=== PATIENT | male | born 1980 | race African-American/Black ===

== ENCOUNTER 2017-11-10 12:10 | Emergency (ER) | payer SELFPAY ==
[2017-11-10] MEDS ORDERED: Ketorolac Tromethamine 30 MG/ML VIAL ONE (13:03)
[2017-11-10] MEDS ORDERED: Diazepam 5 MG TAB ONE (13:04)
--- NOTE | 2017-11-10 13:23 | RAD ---
THREE VIEWS LUMBAR SPINE: Date: 11-10-17 Comparison: None. History: Lumbar spine pain. FINDINGS: Bilateral pedicle screws are present at T11, T12, and L1 with vertically oriented interlocking rods. No evidence for hardware failure. Mild anterior wedging of T12 suggests prior fracture. There is disc space narrowing with degenerative endplate change as well as anterior and posterior osteophyte forma tion at the L4-5 level. No significant anterolisthesis or retrolisthesis. No acute fracture is noted. IMPRESSION: Post-operative and degenerative changes as detailed above. POS: LISETTE
== END 2017-11-10 14:35 | disposition home or self-care (01) ==
LOC: ERS 12:10
DX: M54.5 Low back pain (principal); G89.29 Other chronic pain; F17.210 Nicotine dependence, cigarettes, uncomplicated
CPT/HCPCS: 72100; 96372; J1885

== ENCOUNTER 2018-04-26 18:37 | Observation (INO) | payer OTHER, SELFPAY ==
[2018-04-26] MEDS ORDERED: Sodium Chloride 0.45% 1,000 ML IV SCH (23:30)
[2018-04-27 04:48] VITALS: BMI 26.6
[2018-04-27] MEDS ORDERED: Fentanyl 100 MCG/2 ML VIAL ONE ×2 (06:13→08:54)
[2018-04-27] MEDS ORDERED: Succinylcholine Chloride 20 MG/ML 10 ml SYRINGE FS ONE (06:13)
[2018-04-27] MEDS ORDERED: Betamet Acet/Betamet Na Ph 30 MG/5 ML VIAL ONE (06:44)
[2018-04-27] MEDS ORDERED: Bacitracin Zinc Ointment 30 gm TUBE ONE (06:44)
[2018-04-27] MEDS ORDERED: Sodium Chloride 0.9% 10 ML ONE (06:44)
[2018-04-27] MEDS ORDERED: Bupivacaine PF 0.5% 30 ML VIAL ONE (06:44)
[2018-04-27] MEDS ORDERED: CEFAZOLIN/Water 2 GM/20 ML SYRINGE ONE (06:52)
[2018-04-27] MEDS ORDERED: Midazolam HCl 2 mg/2 ml Vial ONE (07:00)
[2018-04-27] MEDS ORDERED: Promethazine HCl 25 MG/ML VIAL SLOW IVP PRN (07:31)
[2018-04-27] MEDS ORDERED: Promethazine HCl 25 MG/ML VIAL IM PRN (07:31)
[2018-04-27] MEDS ORDERED: Ondansetron HCl/PF 4 MG/2 ML Vial IVP PRN (07:31)
[2018-04-27] MEDS ORDERED: Ketorolac Tromethamine 30 MG/ML VIAL ONE ×2 (08:48→13:15)
[2018-04-27 10:22] VITALS: TEMP 97.6
--- NOTE | 2018-04-27 10:38 | OP ---
DATE OF PROCEDURE: 04/27/2018 PREOPERATIVE DIAGNOSIS: Right thumb 3 centimeter laceration extensor pollicis longus complete tear. FINDINGS: 1. 100% extensor pollicis longus laceration. 2. 50% extensor pollicis brevis laceration. PROCEDURE: 1. Debridement of wound, intermediate depth. 2. Extensor pollicis longus repair. 3. Extensor pollicis brevis repair and debridement, ____ A) excisional; B) involving skin, dermis an d epidermis and fat which were removed at the suture line. There was minimal contamination, only 1 o r 2 particles were file. C) Instrumentation; tenotomy scissors, curet, Adson and 1 liter irrigation with bulb syringe. No gross infection. ANESTHESIA: LMA technique augmented by 20 mL 0.5% Marcaine passed in the block. INDICATION: Laceration at work with deficit. TOURNIQUET TIME: 23 minutes. DESCRIPTION OF PROCEDURE: After successful general LMA technique, the limb was prepped and draped. Timeout was done appropriately. Limb was exsanguinated, tourniquet inflated to 250 mmHg pressure. P revious incision was opened. We immediately debrided the wound as described above. We then irrigate d with 1 liter normal saline. I isolated the tendon edge was 50% extensor pollicis brevis laceration on its ulnar side and 100% extensor pollicis longus laceration with about 1.5 cm retraction. I fe islea off the tendon edges appropriately with sharp instruments, and then made a 2 loop [id number] repair with 4-0 Prolene of the extensor pollicis brevis and then used a modified Walker grasping moreno ture followed with 4-0 Prolene for the extensor pollicis longus followed by oversew with a 6-0 Prolen e for flexor tendon protocol. There was no gap formation whatsoever. The patient had tourniquet deflated. Hemostasis obtained. The extensor tendon had no gap formation and the interphalangeal joint was in 10 degrees hyperextension. Bulky dressing applied with a splint and the patient left the operating room with no complications.
[2018-04-27 12:12] VITALS: BP 140/87
[2018-04-27] MEDS ORDERED: PROPOFOL 200 MG/20 ML VIAL ONE (13:15)
[2018-04-27] MEDS ORDERED: Lidocaine 1% PF 5 ML VIAL ONE (13:15)
[2018-04-27] MEDS ORDERED: ePHEDrine/0.9% NaCl/PF SYRINGE 50 mg/10 ml ONE (13:15)
[2018-04-27] MEDS ORDERED: Dexamethasone 20 MG/5 ML VIAL ONE (13:15)
[2018-04-27] MEDS ORDERED: Ondansetron HCl/PF 4 MG/2 ML Vial ONE (13:15)
== END 2018-04-27 12:13 | disposition home or self-care (01) ==
LOC: ERS 18:37 → SURG A 22:04 → ERS 22:49
PROVIDERS: ADMIT Orthopaedic Surgery Hand Surgery; ATTEND Orthopaedic Surgery Hand Surgery
PROC: 0LQ70ZZ Repair Right Hand Tendon, Open Approach (ICD-10-PCS; principal; 2018-04-27)
DX: S66.221A Laceration of extensor muscle, fascia and tendon of right thumb at wrist and hand level, initial encounter (principal); J45.909 Unspecified asthma, uncomplicated; W31.2XXA Contact with powered woodworking and forming machines, initial encounter; Y99.0 Civilian activity done for income or pay
CPT/HCPCS: 96360; 96361; 99285; A4216; G0378; J0702; J1100; J1885; J2001; J2250; J2405; J2704; J3010; J3490; S0020